=== PATIENT | female | born 1985 | race Hispanic/Latino ===

== ENCOUNTER 2019-06-08 15:37 | Emergency (ER) | payer OTHER ==
[2019-06-08 16:08] LABS: BASOPHILS % (AUTO) 0.6 % (0.0-5.0); EOSINOPHILS % (AUTO) 2.9 % (0.0-8.0); HEMATOCRIT 40.9 % (36-48); LYMPHOCYTES % (AUTO) 31.4 % (21.0-51.0); MEAN CORPUSCULAR HEMOGLOBIN 27.9 pg (27.0-33.0); MEAN CORPUSCULAR HGB CONC 33.3 g/dL (32.0-36.0); MONOCYTES % (AUTO) 6.4 % (3.0-13.0); NEUTROPHILS % (AUTO) 58.3 % (40.0-77.0); PLATELET COUNT (AUTO) 301 K/uL (130-400); RED BLOOD CELL COUNT(AUTO) 4.87 MIL/uL (4.00-5.50); RED CELL DISTRIBUTION WIDTH 12.8 % (11.0-15.5); WHITE BLOOD COUNT (AUTO) 14.3 K/uL (4.8-10.8)
[2019-06-08 16:28] LABS: CREATININE 0.7 mg/dL (0.5-1.5); POTASSIUM 3.8 mmol/L (3.5-5.1)
[2019-06-08 16:31] LABS: INR 0.94 (0.85-1.15); PARTIAL THROMBOPLASTIN TIME 27.3 SEC (26.3-35.5); PROTHROMBIN TIME 9.9 SEC (9.6-11.6)
[2019-06-08 16:33] LABS: ALBUMIN 3.6 g/dL (3.5-5.0); BILIRUBIN,TOTAL 0.2 mg/dL (0.2-1.0); TOTAL PROTEIN, SERUM 8.1 g/dL (6.0-8.3)
[2019-06-08] MEDS ORDERED: IOHEXOL-350 75 ML VIAL IV ONE (19:39)
== END 2019-06-08 22:08 | disposition home or self-care (01) ==
LOC: EDH 15:37
DX: R20.2 Paresthesia of skin (principal); R53.1 Weakness; R07.89 Other chest pain; Z72.0 Tobacco use
CPT/HCPCS: 36415; 70450; 70496; 70498; 80053; 84484 ×3; 84702; 85025; 85378; 85610; 85730; 93005; 99285; Q9967

== ENCOUNTER 2020-02-21 19:39 | Emergency (ER) | payer MEDICAID | END 2020-02-21 20:38 | disposition home or self-care (01) | LOC: EDH 19:39 | DX: S01.511A Laceration without foreign body of lip, initial encounter (principal); K08.419 Partial loss of teeth due to trauma, unspecified class; Z98.890 Other specified postprocedural states; Z72.0 Tobacco use; X58.XXXA Exposure to other specified factors, initial encounter; Y93.89 Activity, other specified; Y92.89 Other specified places as the place of occurrence of the external cause; Y99.8 Other external cause status ==

== ENCOUNTER 2020-06-02 16:09 | Emergency (ER) | payer MEDICAID ==
[2020-06-02] MEDS ORDERED: LIDOCAINE HCL 2% VISCOUS 15 ML UDCUP ONE (16:55)
[2020-06-02] MEDS ORDERED: KETOROLAC TROMETHAMINE 30MG/ML ONE (16:55)
[2020-06-02 17:20] LABS: RAPID GROUP A STREP NEGATIVE (NEGATIVE)
[2020-06-02] MEDS ORDERED: LIDOCAINE HCL-MPF 1% 2ML VIAL ONE (17:40)
[2020-06-02] MEDS ORDERED: CEFTRIAXONE SODIUM 1 GM ONE (17:40)
== END 2020-06-02 18:04 | disposition home or self-care (01) ==
LOC: EDH 16:09
DX: J02.9 Acute pharyngitis, unspecified (principal); Z20.828 Contact with and (suspected) exposure to other viral communicable diseases; Z72.0 Tobacco use; Z98.890 Other specified postprocedural states
CPT/HCPCS: 87426; 87804 ×2; 87880; 96372 ×2; 99284; J0696; J1885; J3490; U0003

== ENCOUNTER 2021-01-23 12:20 | Emergency (ER) | payer MEDICAID ==
[~2021-01-23] VITALS: Ht 154.9 cm; Wt 51.3 kg
[2021-01-23 12:28] VITALS: BP 93/70
[2021-01-23] MEDS ORDERED: ACETAMINOPHEN 500 MG TABLET PO ONE (13:30)
[2021-01-23 16:11] VITALS: BP 93/70
== END 2021-01-23 15:55 | disposition home or self-care (01) ==
LOC: EDH 12:20
DX: U07.1 COVID-19 (principal)
CPT/HCPCS: 87635; 99283; C9803

== ENCOUNTER 2021-03-17 09:41 | Emergency (ER) | payer MEDICAID ==
[~2021-03-17] VITALS: Ht 157.5 cm; Wt 63.5 kg
[2021-03-17 10:16] LABS: BASOPHILS % (AUTO) 0.7 % (0.0-5.0); EOSINOPHILS % (AUTO) 1.4 % (0.0-8.0); LYMPHOCYTES % (AUTO) 34.3 % (21.0-51.0); MEAN CORPUSCULAR HEMOGLOBIN 28.8 pg (27.0-33.0); MEAN CORPUSCULAR HGB CONC 33.3 g/dL (32.0-36.0); MEAN CORPUSCULAR VOLUME 86.6 fL (79-99); MONOCYTES % (AUTO) 3.9 % (3.0-13.0); NEUTROPHILS % (AUTO) 59.3 % (40.0-77.0); PLATELET COUNT (AUTO) 269 K/uL (130-400); RED BLOOD CELL COUNT(AUTO) 4.62 MIL/uL (4.00-5.50); RED CELL DISTRIBUTION WIDTH 13.2 % (11.0-15.5)
[2021-03-17 10:22] LABS: APPEARANCE,URINE Clear (CLEAR); BILIRUBIN,URINE Negative (NEGATIVE); COLOR,URINE Yellow (YELLOW); GLUCOSE, URINE (UA) Negative (NEGATIVE); KETONES,URINE Negative (NEGATIVE); LEUKOCYTE ESTERASE ,URINE Negative (NEGATIVE); NITRATE,URINE Negative (NEGATIVE); OCCULT BLOOD,URINE Negative (NEGATIVE); PH,URINE 7.5 (5.0-8.0); PROTEIN,URINE Negative (NEGATIVE)
[2021-03-17 10:29] LABS: AMPHET/METH SCREEN,URINE NEGATIVE (NEGATIVE); BARBITURATE SCREEN, URINE NEGATIVE (NEGATIVE); BENZODIAZEPINES SCREEN,URINE NEGATIVE (NEGATIVE); CANNABINOID SCREEN,URINE POSITIVE (NEGATIVE); COCAINE SCREEN,URINE NEGATIVE (NEGATIVE); OPIATE SCREEN,URINE NEGATIVE (NEGATIVE); PHENCYCLIDINE SCREEN,URINE NEGATIVE (NEGATIVE)
[2021-03-17 10:30] LABS: CREATININE 0.6 mg/dL (0.5-1.5); POTASSIUM 3.7 mmol/L (3.5-5.1)
[2021-03-17 10:32] LABS: ALBUMIN 4.2 g/dL (3.5-5.0); BILIRUBIN,TOTAL 0.5 mg/dL (0.2-1.0); TOTAL PROTEIN, SERUM 8.1 g/dL (6.0-8.3)
[2021-03-17 11:30] VITALS: BP 122/74
== END 2021-03-17 11:34 | disposition home or self-care (01) ==
LOC: EDH 09:41
DX: R00.2 Palpitations (principal); R20.2 Paresthesia of skin; F17.200 Nicotine dependence, unspecified, uncomplicated
CPT/HCPCS: 36415; 71045; 80053; 80305; 81003; 84484; 84703; 85025; 93005

== ENCOUNTER → 2021-07-08 | Outpatient (CLI) | payer BC, MEDICAID | END | disposition home or self-care (01) | LOC: SHCH 09:19 | PROVIDERS: ATTEND Internal Medicine | DX: R94.31 Abnormal electrocardiogram [ECG] [EKG] (principal) | CPT/HCPCS: 93306 ==

== ENCOUNTER 2021-12-05 07:22 | Emergency (ER) | payer BC, MEDICARE ==
[2021-12-05 07:56] LABS: APPEARANCE,URINE CLEAR (CLEAR); BILIRUBIN,URINE NEGATIVE (NEGATIVE); COLOR,URINE YELLOW (YELLOW); GLUCOSE, URINE (UA) NEGATIVE (NEGATIVE); KETONES,URINE NEGATIVE (NEGATIVE); LEUKOCYTE ESTERASE ,URINE NEGATIVE (NEGATIVE); NITRATE,URINE NEGATIVE (NEGATIVE); OCCULT BLOOD,URINE SMALL (NEGATIVE); PROTEIN,URINE NEGATIVE (NEGATIVE); UROBILINOGEN,URINE 0.2 mg/dL (0.2-1.0)
[2021-12-05 07:57] LABS: HCG,QUAL RESULT NEGATIVE (NEGATIVE)
[2021-12-05 08:20] LABS: BACTERIA,URINE None Seen /HPF (None Seen); MUCUS,URINE Few LPF (None Seen); RBC,URINE 0-1 /HPF (0-1); SQUAMOUS EPITHELIAL CELL,UR 0-2 /HPF (0-2); WBC,URINE 0-1 /HPF (0-1)
[2021-12-05 09:36] LABS: BASOPHILS % (AUTO) 0.2 % (0.0-5.0); EOSINOPHILS % (AUTO) 0.9 % (0.0-8.0); HEMATOCRIT 41.7 % (36-48); LYMPHOCYTES % (AUTO) 10.5 % (21.0-51.0); MEAN CORPUSCULAR HEMOGLOBIN 29.1 pg (27.0-33.0); MEAN CORPUSCULAR HGB CONC 34.3 g/dL (32.0-36.0); MEAN CORPUSCULAR VOLUME 84.8 fL (79-99); MONOCYTES % (AUTO) 4.1 % (3.0-13.0); NEUTROPHILS % (AUTO) 83.9 % (40.0-77.0); PLATELET COUNT (AUTO) 204 K/uL (130-400); RED BLOOD CELL COUNT(AUTO) 4.92 MIL/uL (4.00-5.50); RED CELL DISTRIBUTION WIDTH 12.3 % (11.0-15.5)
[2021-12-05 09:46] LABS: ALBUMIN 3.7 g/dL (3.5-5.0); CREATININE 0.7 mg/dL (0.5-1.5)
[2021-12-05 09:47] LABS: POTASSIUM 2.8 mmol/L (3.5-5.1)
[2021-12-05 09:51] LABS: MAGNESIUM 1.6 mg/dL (1.80-2.40); TOTAL PROTEIN, SERUM 7.4 g/dL (6.0-8.3)
[2021-12-05] MEDS ORDERED: 0.9%NACL 1000ML 1,000 ML IV ONE (10:00)
[2021-12-05] MEDS ORDERED: KCL 20 MEQ ERTAB PO ONE (10:00)
[2021-12-05] MEDS ORDERED: MAGNESIUM 2GM PREMIX 50ML 50 ML IV SCH (10:00)
[2021-12-05 10:10] VITALS: BP 116/71
[2021-12-05] MEDS ORDERED: POTA20PA32 PO (11:32)
== END 2021-12-05 11:35 | disposition home or self-care (01) ==
LOC: EDH 07:22
DX: E87.6 Hypokalemia (principal); R25.2 Cramp and spasm; Z20.822 Contact with and (suspected) exposure to COVID-19
CPT/HCPCS: 99284; 96365; 87635; 96366; 83735; 80053; 85025; 81001; 81025; 36415; C9803; J3475

== ENCOUNTER 2022-06-10 11:50 | Emergency (ER) | payer BC, MEDICAID ==
[~2022-06-10] VITALS: Ht 154.9 cm; Wt 53.5 kg
[~2022-06-10 11:50] MED LIST: POTA20PA32 PO
[2022-06-10 11:56] VITALS: BP 131/72
[2022-06-10 13:35] LABS: BASOPHILS % (AUTO) 0.6 % (0.0-5.0); HEMATOCRIT 38.4 % (36-48); LYMPHOCYTES % (AUTO) 34.2 % (21.0-51.0); MEAN CORPUSCULAR HEMOGLOBIN 28.4 pg (27.0-33.0); MEAN CORPUSCULAR HGB CONC 33.9 g/dL (32.0-36.0); MONOCYTES % (AUTO) 5.9 % (3.0-13.0); NEUTROPHILS % (AUTO) 57.1 % (40.0-77.0); PLATELET COUNT (AUTO) 246 K/uL (130-400); RED BLOOD CELL COUNT(AUTO) 4.57 MIL/uL (4.00-5.50); RED CELL DISTRIBUTION WIDTH 12.2 % (11.0-15.5); WHITE BLOOD COUNT (AUTO) 10.9 K/uL (4.8-10.8)
[2022-06-10 13:51] LABS: AMPHET/METH SCREEN,URINE NEGATIVE (NEGATIVE); BARBITURATE SCREEN, URINE NEGATIVE (NEGATIVE); BENZODIAZEPINES SCREEN,URINE NEGATIVE (NEGATIVE); CANNABINOID SCREEN,URINE POSITIVE (NEGATIVE); COCAINE SCREEN,URINE NEGATIVE (NEGATIVE); OPIATE SCREEN,URINE NEGATIVE (NEGATIVE); PHENCYCLIDINE SCREEN,URINE NEGATIVE (NEGATIVE)
[2022-06-10 14:02] LABS: CREATININE 0.6 mg/dL (0.5-1.5); POTASSIUM 3.4 mmol/L (3.5-5.1)
[2022-06-10 14:07] LABS: ALBUMIN 3.9 g/dL (3.5-5.0); TOTAL PROTEIN, SERUM 7.6 g/dL (6.0-8.3)
[2022-06-10 14:09] LABS: APPEARANCE,URINE CLEAR (CLEAR); BILIRUBIN,URINE NEGATIVE (NEGATIVE); COLOR,URINE COLORLESS (YELLOW); GLUCOSE, URINE (UA) NEGATIVE (NEGATIVE); KETONES,URINE NEGATIVE (NEGATIVE); LEUKOCYTE ESTERASE ,URINE NEGATIVE Leu/uL (NEGATIVE); NITRATE,URINE NEGATIVE (NEGATIVE); OCCULT BLOOD,URINE NEGATIVE (NEGATIVE); PROTEIN,URINE NEGATIVE (NEGATIVE); UROBILINOGEN,URINE 0.2 mg/dL (0.2-1.0)
== END 2022-06-10 14:30 | disposition left against medical advice (07) ==
LOC: EDH 11:50
DX: I95.9 Hypotension, unspecified (principal); Z53.21 Procedure and treatment not carried out due to patient leaving prior to being seen by health care provider
CPT/HCPCS: 36415; 80053; 80305; 81003; 85025; 93005

== ENCOUNTER 2023-06-01 07:03 | Emergency (ER) | payer BC, MEDICAID, OTHER ==
[~2023-06-01] VITALS: Ht 154.9 cm; Wt 48.5 kg
[2023-06-01 07:17] VITALS: BP 107/66; PULSE 68; RESP 18
[2023-06-01 08:11] LABS: COVID19 (SARS ANTIGEN RAPID) PRESUMPTIVE NEGATIVE (NEGATIVE); INFLUENZA TYPE A Negative For Type A (NEGATIVE); INFLUENZA TYPE B Negative For Type B (NEGATIVE)
[2023-06-01 08:13] LABS: RAPID GROUP A STREP negative (NEGATIVE)
== END 2023-06-01 09:09 | disposition home or self-care (01) ==
LOC: EDH 07:03
DX: J20.8 Acute bronchitis due to other specified organisms (principal); B97.89 Other viral agents as the cause of diseases classified elsewhere; Z20.822 Contact with and (suspected) exposure to COVID-19; Z79.899 Other long term (current) drug therapy
CPT/HCPCS: 87426; 87804; 87880